=== PATIENT | male | born 1960 | race Caucasian/White ===

== ENCOUNTER 2023-12-15 10:41 | Emergency (ER) | payer BC, SELFPAY ==
[2023-12-15] VITALS (7 sets, daily range): BP systolic 125–153; BP diastolic 67–78
[2023-12-15 11:43] LABS: % Basophils 0.7 % (0-2); % Eosinophils 6.5 % (0-6); % Immature Granulocytes 0.2 % (0-0.5); % Lymphocytes 39.2 % (20.5-51.1); % Monocytes 9.4 % (1.7-9.3); Absolute Eosinophils 0.4 10^3/uL (0-0.7); Absolute Lymphocytes 2.2 10^3/uL (1.2-3.4); Absolute Monocytes 0.5 10^3/uL (0.1-0.6); Absolute Neutrophils 2.5 10^3/uL (1.4-6.5); Hematocrit 41.7 % (39.0-52.0); Hemoglobin 13.7 g/dL (13.0-18.0); Mean Corp Hgb Conc. 32.9 g/dL (33.0-37.0); Mean Corpuscular Hgb 29.3 pg (27.0-31.0); Mean Corpuscular Volume 89.1 fL (80.0-94.0); Mean Platelet Volume 9.4 fL (7.4-10.4); Nucleated Red Blood Cells % 0 % (-); Platelet Count 266 10^3/uL (130-400); Red Blood Cell Count 4.68 10^6/uL (4.70-6.10); White Blood Cell Count 5.7 10^3/uL (4.8-10.8)
[2023-12-15 11:59] LABS: ALT (SGPT) 35 U/L (0-50); AST (SGOT) 48 U/L (17-59); Albumin 4.6 g/dl (3.5-5.0); Alkaline Phosphatase 73 U/L (38-126); Blood Urea Nitrogen 19 mg/dl (9-20); Calcium 9.8 mg/dl (8.4-10.2); Carbon Dioxide 28 mmol/L (22-30); Chloride 101 mmol/L (98-107); Glucose 93 mg/dl (70-99); Potassium 4.3 mmol/L (3.5-5.1); Sodium 139 mmol/L (135-145); Total Bilirubin 0.6 mg/dl (0.2-1.3); Total Protein 7.2 g/dl (6.3-8.2); eGFR > 60.00
[2023-12-15 12:09] LABS: Troponin I < 0.012 ng/ml
--- NOTE | 2023-12-15 13:03 | ED.GENMED ---
Addendum entered and electronically signed by Santos White MD 12/15/23 17:33:
UPDATE (Santos White MD)
I saw and examined patient after signout and reviewed all labs and imaging.
Focused HPI: 63-year-old male with a history of hypertension, hyperlipidemia, CAD status post CABG presents with atypical chest pain worse with movement and activity. Intermittent since this morning. No shortness of breath. No cough. No fevers
or chills. No nausea, vomiting, diaphoresis.
Physical exam: Awake alert not in distress. Mild bradycardia and marginal hypertension otherwise unremarkable vitals. He has some mild chest wall tenderness on the right side parasternal region. No edema in his extremities.
Medical Decision Making: Patient presents for atypical chest pain intermittently throughout the day worse with movement and activity. He had labs including a CBC and a CMP which were unremarkable. He had 2 troponins which were both undetectable.
He had a chest x-ray which showed no acute disease. Consult has been placed to cardiology who will evaluate given his high risk cardiac history.
Cardiology evaluated patient low suspicion that this represents anginal/cardiac chest pain. They did adjust patient's dose of Coreg for bradycardia but otherwise comfortable with discharge and they will follow-up with him as an outpatient. Advised
him to follow-up with his primary doctor as well. He feels comfortable with this. On my clinical reassessment he tells me he is asymptomatic and feels well. He did tell me that he was doing some leg raises on the ground and other exercises
yesterday and wonders if he may have pulled a muscle. This seems likely given his reproducible tenderness. We spoke about return precautions and all questions were answered.
Original Note:
History of Present Illness
General
Chief Complaint: Chest Pain
Source: patient
Exam Limitations: none
Time Seen by Provider: 12/15/23 11:24
Travel History
Have you had any contact with someone who has COVID-19?: No
Do you have any symptoms of coronavirus? Fever > 100 degrees, chills, cough, shortness of breath, sore throat, loss of taste or smell, muscle aches, or headache?: No
History of Present Illness
History of Present Illness:
63-year-old male with a history of CABG/CAD who presents with chest pain. Started this morning. It is worse with activity but he is unable to clarify whether it is just worse when he moves or worse with exertion. Pain is sharp and in the center
of his chest. He feels like it is a little bit toward his back. Denies shortness of breath. No weakness. Denies rash. No injury. Reportedly saw his cryptanalyst last week. The patient states he has had CABG in the past and then a stent. He
has never really had angina. His CABG came after cardiac arrest while on a treadmill
Past History
Past History
ED Past Medical History: CAD, HTN and Hypercholesterolemia
ED Past Surgical History: Cardiac (CAGB)
Phy Exam
Physical Exam
Physical Exam:
CONSTITUTIONAL Patient alert and oriented to person, place and time. Well-appearing. Vital signs reviewed.
HEAD atraumatic, normocephalic.
EYES eyelids normal to inspection, Extraocular muscles intact, Conjunctiva normal, Sclera normal.
NECK normal range of motion, Trachea midline, no jugular venous distention.
RESPIRATORY CHEST No respiratory distress noted, Chest expansion equal, Bilateral breath sounds clear.
CARDIOVASCULAR regular and bradycardic, Heart sounds normal.
ABDOMEN No distention.
BACK normal inspection, no obvious deformities
UPPER EXTREMITY range of motion normal, Motor strength normal, no cyanosis, no edema.
LOWER EXTREMITY range of motion normal, Motor strength normal, no cyanosis, no edema.
NEURO Speech normal, No focal motor deficits, Juan Ramon coma scale 15, Memory normal, Cranial Nerves intact to screening exam.
SKIN skin warm, dry, and normal in color.
PSYCHIATRIC patient oriented to person place and time, Normal affect.
Scores
Heart Score for Chest Pain Patients
STEMI patient?: No
History: Slightly or Non-Suspicious
ECG: Nonspecific Repolarization
Age: >/= 65 years
Risk Factors: >/= 3 Risk Factors or History of CAD
Troponin: </= Normal Limit
Heart Score for Chest Pain Patients: 5
Heart Score Risk: 20.3% MACE over next 6 weeks
Course
Orders/Labs/Results
Orders:
Orders
12/15/23 10:45
Electrocardiogram (*1) Urgent
Reason for Study: Chest Pain
EKG- Treatment ONCE
12/15/23 11:18
Cardiac Monitoring- Treatment ONCE
IV Insert/Care/Rem.- Treatment PRN
O2 Therapy [RESP] Urgent
Titrate/Wean O2 to maintain O2 sat greater than (%): 90
Special Instructions: Maintain sats >/=90%
Pulse Ox/spot Check [RESP] Urgent
Quantity: 1
Special Instructions: ON ROOM AIR
12/15/23 11:29
Complete Blood Count/With Diff Urgent
Comprehensive Metabolic Panel Urgent
Troponin I Urgent
12/15/23 11:35
CR Chest - 2 Views Urgent
Comment:
Reason For Exam: cp
Abnormal Lab Results
12/15/23
11:29
RBC 4.68 L 10^6/uL
(4.70-6.10)
MCHC 32.9 L g/dL
(33.0-37.0)
Monocytes % 9.4 H %
(1.7-9.3)
Eosinophils % 6.5 H %
(0-6)
12/15/23 11:29
12/15/23 11:29
Vital Signs
Initial and Last Documented VS:
Initial Vital Signs
Temp Pulse Resp BP Pulse Ox
98.3 F 50 16 141/67 98
12/15/23 10:54 12/15/23 10:54 12/15/23 10:54 12/15/23 10:54 12/15/23 10:54
Last Documented Vital Signs
Temp Pulse Resp BP Pulse Ox
98.3 F 49 13 142/72 96
12/15/23 10:54 12/15/23 12:05 12/15/23 12:05 12/15/23 12:04 12/15/23 12:05
MDM/Problems Addressed
MDM/Problems Addressed:
Atypical chest pain
*Radiology
Radiology exam reviewed: radiology read reviewed and all reviewed NAD by ED Provider
*Pulse Oximetry
Patient hypoxic: no
*EKG
Interpreted by ED Provider?: Yes
Interpretation: abnormal
Rate: bradycardiac
Rhythm: sinus and PAC's
Carriere: normal axis
QRS Pattern: left vent hypertrophy
Ischemia: non-specific ST changes
*Flatwork Folder Interpretation
Rate: bradycardiac
Interpretation: abnormal
Rhythm: sinus
*Critical Care Note
Total Time (30-74mins, 75-104mins- exclusive of procedures): Not Applicable
Data Reviewed
Source: patient
Prescriptions/Medications Considered But Not Given:
Consider heparin but symptoms are atypical await cardiology consult
Patient Management
Discussion with other providers: Computer Education Teacher (Case discussed with cardiology)
Escalation/DeEscalation of care consider admission/obs:
Patient appears well and troponin and EKG thus far negative. No pain at rest. Question musculoskeletal etiology. Do not suspect dissection as mediastinum okay, blood pressure okay. Pain is sharp. Given his risk, cardiology consulted.
Disposition after cardiology consultation
ED Attending Note
-
Portions of this chart may have been created with voice recognition software.� Occasional wrong word or��sound alike� substitutions may have occurred due to the inherent limitations of voice recognition software.
Discharge Plan
Departure
Prescriptions:
No Action
atorvastatin [Lipitor] 40 mg Tablet
40 mg PO DAILY
cyanocobalamin (vitamin B-12) 1,000 mcg Tablet
1,000 mcg PO DAILY
Theragen Tablet
1 tab PO DAILY
clopidogrel [Plavix] 75 mg Tablet
75 mg PO DAILY
amlodipine [Norvasc] 5 mg Tablet
5 mg PO DAILY
aspirin 81 mg Tablet,Delayed Release (Dr/Ec)
81 mg PO DAILY
pyridoxine (vitamin B6) 50 mg Tablet
50 mg PO DAILY
lisinopril 5 mg Tablet
5 mg PO DAILY
magnesium oxide 400 mg magnesium Tablet
400 mg PO DAILY
metoprolol succinate [Toprol XL] 25 mg Tablet Extended Release 24 Hr
25 mg PO DAILY
Referrals:
UNKNOWN - PT DOES,NOT KNOW [Family Provider] -
Interventions
Interventions:
*Risk Screen - Suicide Last Done: 12/15/23 11:32
*General Assessment Last Done: 12/15/23 11:31
*Neglect/Abuse Screening Last Done: 12/15/23 11:32
ED- Fall Risk Assessment Last Done: 12/15/23 11:31
*ED COVID-19 Vaccine History Last Done: 12/15/23 10:54
ED- Cardiac Assessment Last Done: 12/15/23 11:31
Discharge Date and Time
Print Language: URUGUAYAN
[2023-12-15 15:47] LABS: Troponin I < 0.012 ng/ml
--- NOTE | 2023-12-15 16:15 | CON.CAR ---
Addendum entered and electronically signed by Mily Lee MD 12/15/23 17:15:
I saw and examined the patient.
The Heating Plant Superintendent's note was reviewed and I agree with the note.
Comment: Mr. Ramon is a 63-year-old gentleman with past medical history of hypertension, hyperlipidemia, coronary artery disease status post two-vessel CABG in 2012 with CISNEROS to LAD and saphenous vein graft to D1 in setting of cardiac arrest from VT
VF, more recently after an abnormal stress test underwent PCI to distal left main into left circumflex artery in July 2023 at [facility] by Dr. Aleksander Knott in [place] who comes in with acute onset of atypical chest
pain. He woke up around this morning experiencing sharp back and central chest pains without any radiation lasting a few seconds without any particular triggers. He noted that the exacerbating factor was any movement involving his chest/trunk. He
did not feel like his symptoms were truly exertional in nature as he did not appreciate the symptoms while he was walking or taking a flight of stairs up. He denies any pleuritic nature to his chest pain. Post his PCI he just completed cardiac
rehab a week and a half ago and was seen by Dr. Yury Peralta as a new patient in our practice 2 days ago with no complaints. His last echocardiogram showed preserved LVEF. He has been on the same Toprol dose for years with baseline bradycardia
which is completely asymptomatic. He denies any other associated symptoms. Troponin x 2 have been negative. ECG with sinus bradycardia and nonspecific ST-T wave changes without acute ischemia.
Vital signs and lab work reviewed. On exam patient is a well-appearing gentleman in no acute distress, awake, alert and oriented x 3, normal S1 and S2, no murmurs, rubs or gallops, prior sternotomy scar is well-healed, lungs are clear to
auscultation bilaterally, negative JVD, abdomen is soft, nontender, nondistended with active bowel sounds, warm extremities without significant edema.
Recommendations:
1. Based on history in the setting of negative troponins and EKG, his atypical chest discomfort does not appear to be cardiac in origin. Patient is deemed stable from a cardiac standpoint for discharge home.
2. Given significant bradycardia at baseline, we will decrease his Toprol-XL to 12.5 mg daily and work on a cardiology follow-up in the next 2 to 4 weeks. I instructed that the patient come in for further evaluation or call our office in case his
symptoms are persistent or worsen in any way.
3. He will continue all of his other cardiac medications.
Discussed with ED staff.
Mily Lee MD, [facility], [facility]
Original Note:
Consultation
Consultation Request
Date/Time Consultation Performed: 12/15/23
Requesting Provider: Dr. Smith
Performing Provider: Kim Sage PA-C for Dr. Lee
Reason for Consultation: CP
Medical History
-
Chief Complaint: CP
History of Present Illness:
Patient is a 63 yo M with PMH of CAD s/p CABG x2 CISNEROS to LAD and SVG to D1 in 2012 in setting of cardiac arrest from VT/VF, more recently PCI to distal LM to LCx 07/2023 at [facility] who presents to for evaluation of CP. He states he woke up this
morning with sharp central chest discomfort which has waxed and waned since that time. He reports he notices it with movement such as with lifting himself up from a chair, or lifting his arms in the air. He denies SOB, lightheadedness, N/V. States
he walks regularly and does not notice the pain with walking and has not noted decreased activity tolerance. Trops negative x2. CXR without abnormality. Cardiology consulted for evaluation. He was seen in cardiology office 12/12 and lisinopril was
added for HTN. He also is noted to have bradycardia with HRs in 40s, asymptomatic. He has been compliant with OP medications.
PMH:
CAD s/p CABG x2 CISNEROS to LAD and SVG to D1 in 2012 in setting of cardiac arrest from VT/VF, more recently PCI to distal LM to LCx 07/2023 at [facility]
HTN
HLD
Past Medical History
Past Medical History: Other (in HPI)
Social History
Tobacco: Non-Smoker
Alcohol: Occasional
Family History
Family History: Cancer and Other (CHF)
Allergies / Home Medications
Allergy/AdvReac Type Severity Reaction Status Date / Time
No Known Allergies Allergy Verified 12/15/23 10:55
�Medication �Instructions �Recorded �Confirmed �Type
amlodipine 5 mg tablet (Norvasc) 5 mg PO DAILY 12/15/23 12/15/23 History
aspirin 81 mg tablet,delayed 81 mg PO DAILY 12/15/23 12/15/23 History
release
atorvastatin 40 mg tablet (Lipitor) 40 mg PO DAILY 12/15/23 12/15/23 History
clopidogrel 75 mg tablet (Plavix) 75 mg PO DAILY 12/15/23 12/15/23 History
cyanocobalamin (vitamin B-12) 1,000 mcg PO DAILY 12/15/23 12/15/23 History
1,000 mcg tablet
lisinopril 5 mg tablet 5 mg PO DAILY 12/15/23 12/15/23 History
magnesium oxide 400 mg PO DAILY 12/15/23 12/15/23 History
metoprolol succinate 25 mg 25 mg PO DAILY 12/15/23 12/15/23 History
tablet,extended release 24 hr
(Toprol XL)
pyridoxine (vitamin B6) 50 mg 50 mg PO DAILY 12/15/23 12/15/23 History
tablet
therapeutic multivitamin 1 tab PO DAILY 12/15/23 12/15/23 History
Review of Systems
-
History Source: Patient
All other systems: Negative unless noted
Physical Exam
Vital Signs
Temp Pulse Resp BP Pulse Ox
98.3 F 46 16 153/78 98
12/15/23 10:54 12/15/23 16:00 12/15/23 16:00 12/15/23 16:00 12/15/23 16:00
Lab Results
12/15/23 11:29
12/15/23 11:29
Troponin I < 0.012 ng/ml 12/15/23 15:09
Physical Exam
General: No Apparent Distress and Comfortable
HEENT: Normocephalic, Anicteric and Moist Mucous Membranes
Respiratory: Clear and Non Labored Respirations
Cardiac: S1/S2 and Regular Rhythm
GI: Soft, Non Tender, Non Distended and Normal Bowel Sounds
Musculoskeletal: No Clubbing, No Cyanosis and No Edema
Skin: Warm and Dry
Neuro: AO x 3
Impression / Plan
-
Primary Funeral Planner: Dr. Coates
Assessment:
Presentation with CP
Negative trops x2
Sinus bradycardia
CAD s/p CABG x2 CISNEROS to LAD and SVG to D1 in 2012 in setting of cardiac arrest from VT/VF, more recently PCI to distal LM to LCx 07/2023 at [facility]
HTN
HLD
Plan:
-Patient presents with chest discomfort. appears atypical for cardiac etiology
-trops negative x2
-EKG stable to that from office 12/13/23
-CXR without acute abnormalities
-reviewed last office note from [facility] manager with only luminal irreg of RCA by cath 07/2023, 50% RPDA stenosis noted.
-noted to be bradycardic in ER with HRs in 40s, asymptomatic. will reduce toprol dose to 12.5mg daily
-continue norvasc, lisinopril
-continue asa, plavix, statin
-OP cardiac follow up arranged for reassessment
-patient to return to ER for recurrent or worsening symptoms
Data Reviewed
-
EKG: Tracing Personally Visualized and interpreted
Radiology: Report Reviewed by me
Medical Tests (Nuc Med, Echo etc): Report Reviewed by me
Labs: Labs Reviewed by me
Old Records: Reviewed
== END 2023-12-15 17:43 | disposition home or self-care (01) ==
LOC: EMR 10:41
PROVIDERS: Physician Assistant; EMERGENCY PHYSICIAN Emergency Medicine; OTHER PHYSICIAN Internal Medicine Interventional Cardiology
DX: R07.89 Other chest pain (principal); R00.1 Bradycardia, unspecified; E78.00 Pure hypercholesterolemia, unspecified; I10 Essential (primary) hypertension; I25.10 Atherosclerotic heart disease of native coronary artery without angina pectoris; Z95.1 Presence of aortocoronary bypass graft; Z79.02 Long term (current) use of antithrombotics/antiplatelets; Z86.74 Personal history of sudden cardiac arrest
CPT/HCPCS: 99285; 94760; 71046; 80053; 84484; 85025; 93005

== ENCOUNTER 2025-01-22 06:15 | Day surgery (SDC) | payer BC, SELFPAY ==
[2025-01-22 07:42] VITALS: BMI 34.8
[2025-01-22 07:53] VITALS: BMI 34.8
[2025-01-22 07:55] VITALS: BP 133/67
[2025-01-22 09:40] VITALS: BP 102/69
[2025-01-22 09:45] VITALS: BP 110/57
[2025-01-22 10:00] VITALS: BP 115/74
== END 2025-01-22 10:10 | disposition home or self-care (01) ==
LOC: GI 06:15
PROVIDERS: ATTENDING PHYSICIAN Specialist
DX: Z12.11 Encounter for screening for malignant neoplasm of colon (principal); K57.30 Diverticulosis of large intestine without perforation or abscess without bleeding; K64.8 Other hemorrhoids; K63.5 Polyp of colon
CPT/HCPCS: 45385; 88305